=== PATIENT | female | born 1980 | race Asian ===

== ENCOUNTER → 2017-06-22 | Outpatient (CLI) | payer BC, OTHER ==
[2017-06-22 19:58] LABS: FREE T4 0.96 NG/DL (0.76-1.46)
== END ==
LOC: M SMT 15:40
DX: R63.5 Abnormal weight gain (principal)
CPT/HCPCS: 84443

== ENCOUNTER → 2017-07-06 | Outpatient (REF) | payer OTHER ==
[2017-07-06 14:46] LABS: INFLUENZA A AMPLIFICATION POSITIVE (NEGATIVE); INFLUENZA B AMPLIFICATION NEGATIVE (NEGATIVE); RSV AMPLIFICATION NEGATIVE (NEGATIVE)
== END ==
LOC: M LAB REF 13:37
DX: J11.1 Influenza due to unidentified influenza virus with other respiratory manifestations (principal)

== ENCOUNTER → 2018-10-17 | Outpatient (REF) | payer OTHER ==
[~2018-10-17] MED LIST: CIPR-249 PO; DOCU5LIQ PO; FERR325T3 PO; FLAG500T PO; IBUP80TA PO; MYLI40DR PO; ORTH1TAB15 PO; OXYC1TAB23 PO; ROXI1TAB2 PO; TRI-TAB16 PO; TYLE167L PO; [UNRECOGNIZED DRUG - OTHER] PO
[2018-10-19 14:10] LABS: HPV HYBRID CAPTURE II Negative (Negative)
== END ==
LOC: M LAB REF 18:25
PROVIDERS: ATTEND Advanced Practice Midwife
DX: Z12.4 Encounter for screening for malignant neoplasm of cervix (principal)
CPT/HCPCS: 87624; G0123

== ENCOUNTER → 2018-11-20 | Outpatient (CLI) | payer BC, OTHER ==
--- NOTE | 2018-11-20 16:22 | REP ---
Digital diagnostic bilateral mammography with CAD, 3-D tomography, and focused bilateral breast sonography: History: Lump in the left breast/left axilla. Near armpit region times 1 month. No comparison breast imaging. Mammographic findings: Routine views of the left breast are augmented by diagnostic views including magnified focal spot compression view. A skin marker is affixed to the skin at the site of the palpable lump. This could not be projected mammographically being too high in the axillary soft tissues. The left breast demonstrate scattered fibroglandular elements. The right breast shows the same pattern. However, on the right incidental note is made of a well-circumscribed 9 o'clock nodule in the middle third of the right breast. This measures 15 mm in greatest diameter. It is confirmed on 3-D tomography images. No additional tomographic abnormality is seen. Sonographic findings: In the right breast scanning is performed from 8 o'clock to 9 o'clock. At 9 o'clock there is a hypoechoic area measuring 1.4 x 0.7 x 1.1 cm 2.1 cm from the nipple which is felt to correspond to the mammographic opacity. This does not demonstrate enhanced through transmission but rather multiple images show acoustic shadowing. It is wider than tall. It is not a simple cyst. Sonographic scanning of the left breast at the site of the palpable lump demonstrates a lymph node with a echogenic hilar architecture. This lymph node measures 1.1 x 1.4 x 0.7 cm. There is an additional lymph node adjacent to this measuring 1.3 x 0.5 x 1.8 cm. These appear somewhat thickened. Impression: BIRADS category four suspicious findings. There is a 15 mm solid oval-shaped nodule in the right breast compatible with a fibroadenoma but with atypical findings. Ultrasound guided needle biopsy recommended with marker clip placement and post biopsy marker clip placement mammogram. BIRADS 4: BI-RADS/ACR category 4 mammogram. Suspicious Abnormality - biopsy should be considered. Corresponding to the lump in the left axilla are two presumed lymph nodes which are somewhat prominent in size. Ultrasound-guided needle biopsy of these is suggested as well. This mammogram was interpreted with the aid of an FDA-approved computer-aided detection system. The patient states she had a clinical breast exam in September 2018. The patient letter being requested is M4. This patient's estimated Tyrer-Cuzick lifetime risk assessment for the breast cancer is 15.2 %. Electronically Signed by Dre Tsai MD 11/20/2018 04:43 P
== END ==
LOC: M RAD 12:43
PROVIDERS: ATTEND Obstetrics & Gynecology
DX: N63.20 Unspecified lump in the left breast, unspecified quadrant (principal)
CPT/HCPCS: 76642; 77066; G0279

== ENCOUNTER → 2020-09-09 | Outpatient (CLI) | payer BC ==
[~2020-09-09] MED LIST changes: -ORTH1TAB15 PO; +ORTH1TAB8 PO
== END ==
LOC: M WHC 10:49
PROVIDERS: ATTEND Advanced Practice Midwife
DX: Z12.31 Encounter for screening mammogram for malignant neoplasm of breast (principal)

== ENCOUNTER → 2024-04-10 | Outpatient (REF) | payer OTHER, BC | LOC: M SFHCWAGY 14:05 | PROVIDERS: ATTEND Advanced Practice Midwife | DX: Z12.4 Encounter for screening for malignant neoplasm of cervix (principal) ==

== ENCOUNTER → 2024-05-11 | Outpatient (REF) | payer BC | LOC: M PLALAB 13:46 | PROVIDERS: ATTEND Advanced Practice Midwife | DX: Z12.4 Encounter for screening for malignant neoplasm of cervix (principal); Z53.9 Procedure and treatment not carried out, unspecified reason ==